=== PATIENT | female | born 1950 | race Caucasian/White ===

== ENCOUNTER → 2023-03-25 10:28 | Outpatient (REF) | payer MEDICARE, SELFPAY | LOC: RAD 10:28 | PROVIDERS: ATTENDING PHYSICIAN Internal Medicine | DX: R31.9 Hematuria, unspecified (principal); R39.9 Unspecified symptoms and signs involving the genitourinary system | CPT/HCPCS: 76770 ==

== ENCOUNTER → 2023-04-27 13:12 | Outpatient (REF) | payer MEDICARE, SELFPAY ==
[2023-04-27 19:34] LABS: Urine Albumin Negative (Neg - Trace); Urine Bilirubin Negative (Negative); Urine Character Clear (Clear); Urine Color Yellow; Urine Glucose Negative (Negative); Urine Ketone Negative (Negative); Urine Leukocyte Negative (Negative); Urine Nitrite Negative (Negative); Urine Occult Blood Negative (Negative); Urine Urobilinogen Negative (Neg - 1+)
== END ==
LOC: CLAB 13:12
PROVIDERS: ATTENDING PHYSICIAN Nurse Practitioner
DX: N39.0 Urinary tract infection, site not specified (principal)
CPT/HCPCS: 81003; 87086

== ENCOUNTER → 2023-05-18 13:06 | Outpatient (REF) | payer MEDICARE, SELFPAY | LOC: RAD 13:06 | PROVIDERS: ATTENDING PHYSICIAN Internal Medicine | DX: S52.502A Unspecified fracture of the lower end of left radius, initial encounter for closed fracture (principal); Z78.0 Asymptomatic menopausal state | CPT/HCPCS: 77080 ==

== ENCOUNTER → 2023-05-27 14:34 | Outpatient (REF) | payer MEDICARE, SELFPAY ==
[2023-05-27 16:50] LABS: ALT (SGPT) 15 U/L (0-35); AST (SGOT) 21 U/L (14-36); Albumin 4.2 g/dl (3.5-5.0); Alkaline Phosphatase 53 U/L (38-126); Direct Bilirubin 0.1 mg/dl (0.0-0.4); LDH 177 U/L (120-246); Total Bilirubin 1.4 mg/dl (0.2-1.3); Total Protein 6.3 g/dl (6.3-8.2)
== END ==
LOC: RAD 14:34
PROVIDERS: ATTENDING PHYSICIAN Dermatology; FAMILY PHYSICIAN Internal Medicine
DX: Z95.820 Peripheral vascular angioplasty status with implants and grafts (principal)
CPT/HCPCS: 36415; 71046; 80076; 83615

== ENCOUNTER → 2023-07-22 20:33 | Outpatient (REF) | payer MEDICARE, SELFPAY | LOC: MRI 3T 20:33 | PROVIDERS: ATTENDING PHYSICIAN Orthopaedic Surgery Hand Surgery; FAMILY PHYSICIAN Internal Medicine | DX: S52.542D Smith's fracture of left radius, subsequent encounter for closed fracture with routine healing (principal) | CPT/HCPCS: 73221 ==

== ENCOUNTER → 2023-11-04 11:53 | Outpatient (REF) | payer MEDICARE, SELFPAY | LOC: WDC 11:53 | PROVIDERS: ATTENDING PHYSICIAN Internal Medicine | DX: Z12.31 Encounter for screening mammogram for malignant neoplasm of breast (principal) | CPT/HCPCS: 77063; 77067 ==

== ENCOUNTER → 2023-12-07 11:46 | Outpatient (REF) | payer MEDICARE, SELFPAY | LOC: RAD 11:46 | PROVIDERS: ATTENDING PHYSICIAN Internal Medicine | DX: E78.5 Hyperlipidemia, unspecified (principal) | CPT/HCPCS: 75571 ==

== ENCOUNTER → 2023-12-27 15:01 | Outpatient (REF) | payer MEDICARE, SELFPAY | LOC: RCS 15:01 | PROVIDERS: ATTENDING PHYSICIAN Internal Medicine | DX: I31.39 Other pericardial effusion (noninflammatory) (principal) | CPT/HCPCS: 93306 ==

== ENCOUNTER → 2024-01-24 11:36 | Outpatient (REF) | payer MEDICARE, SELFPAY | LOC: RAD 11:36 | PROVIDERS: ATTENDING PHYSICIAN Internal Medicine | DX: R91.1 Solitary pulmonary nodule (principal) | CPT/HCPCS: 71250 ==

== ENCOUNTER → 2024-05-12 12:59 | Outpatient (REF) | payer MEDICARE, SELFPAY ==
[2024-05-12 14:00] LABS: ALT (SGPT) 14 U/L (0-35); AST (SGOT) 18 U/L (14-36); Albumin 4.4 g/dl (3.5-5.0); Alkaline Phosphatase 49 U/L (38-126); Direct Bilirubin 0.1 mg/dl (0.0-0.4); Total Bilirubin 1.7 mg/dl (0.2-1.3); Total Protein 6.5 g/dl (6.3-8.2)
[2024-05-12 14:24] LABS: LDH 168 U/L (120-246)
== END ==
LOC: REG 12:59
PROVIDERS: ATTENDING PHYSICIAN Dermatology; FAMILY PHYSICIAN Internal Medicine
DX: Z85.820 Personal history of malignant melanoma of skin (principal)
CPT/HCPCS: 36415; 80076; 83615

== ENCOUNTER → 2024-06-26 11:24 | Outpatient (REF) | payer MEDICARE, SELFPAY | LOC: HWRAD 11:24 | PROVIDERS: ATTENDING PHYSICIAN Internal Medicine; REFERRING PHYSICIAN Internal Medicine Pulmonary Disease | DX: R91.8 Other nonspecific abnormal finding of lung field (principal) | CPT/HCPCS: 71250 ==

== ENCOUNTER → 2024-11-07 11:56 | Outpatient (REF) | payer MEDICARE, SELFPAY | LOC: WDC 11:56 | PROVIDERS: ATTENDING PHYSICIAN Internal Medicine | DX: Z12.31 Encounter for screening mammogram for malignant neoplasm of breast (principal) | CPT/HCPCS: 77063; 77067 ==